=== PATIENT | male | born 1975 | race Hispanic/Latino ===

== ENCOUNTER → 2022-04-25 08:22 | Outpatient (CLI) | payer OTHER, SELFPAY ==
--- NOTE | 2022-04-25 08:25 | DI.RAD.S_ITS ---
PROCEDURE: XR LUMBAR SPINE MIN 4V INDICATIONS: BACK PAIN TECHNIQUE: 5 views of the lumbar spine were acquired, including bilateral oblique views. COMPARISON: None. FINDINGS: Bones: 4 [id number] vertebrae are present. L5 is partially sacralized. There is normal bony alignment. No vertebral body compression fractures. No suspicious bony lesions. Mild degenerative disc disease is seen at T12-L1 and L1-L2. There is mild degenerative disc disease and facet arthropathy at L4-L5. Soft tissues: Overlying bowel gas pattern is normal. No suspicious soft tissue calcifications. Oblique images: No pars defects. IMPRESSION: 1. Mild degenerative disc and facet disease in lumbar spine. 2. Transitional anatomy. 3. No pars defects. Dictated by: Roe Guido M.D. on 04/25/2022 at 9:11 Approved by: Roe Guido M.D. on 04/25/2022 at 9:13
--- NOTE | 2022-04-25 08:25 | DI.RAD.S_ITS ---
PROCEDURE: XR THORACIC SPINE 3V INDICATIONS: RIB PAIN TECHNIQUE: 3 views of the thoracic spine were acquired. COMPARISON: [facility], CR, XR LUMBAR SPINE MIN 4V, 04/25/2022, 8:23. FINDINGS: Bones: No fractures or dislocations. No suspicious bony lesions. 12 pairs of ribs are noted, and appear intact where visualized. Mild degenerative disc disease with anterior spurring at T4-T5, T5-T6, T6-T7, T7-T8, T11-T12 and T12-L1. Soft tissues: No paravertebral stripe thickening. IMPRESSION: Mild degenerative disc disease. Dictated by: Roe Guido M.D. on 04/25/2022 at 9:13 Approved by: Roe Guido M.D. on 04/25/2022 at 9:15
== END ==
PROVIDERS: Referring Provider Physical Medicine & Rehabilitation; Visit Provider Physical Medicine & Rehabilitation
DX: M51.34 Other intervertebral disc degeneration, thoracic region (principal); M51.35 Other intervertebral disc degeneration, thoracolumbar region; M51.36 Other intervertebral disc degeneration, lumbar region; M47.816 Spondylosis without myelopathy or radiculopathy, lumbar region; R07.81 Pleurodynia; M54.9 Dorsalgia, unspecified; M51.27 Other intervertebral disc displacement, lumbosacral region; M75.41 Impingement syndrome of right shoulder; M75.42 Impingement syndrome of left shoulder; M17.11 Unilateral primary osteoarthritis, right knee
CPT/HCPCS: 72072; 72110; 99214

== ENCOUNTER → 2022-05-15 18:58 | Outpatient (CLI) | payer OTHER, SELFPAY ==
--- NOTE | 2022-05-15 19:00 | DI.MRI.S_ITS ---
PROCEDURE: MR LUMBAR SPINE WO CON INDICATIONS: Lumbar facet arthropathy episodic low back pain TECHNIQUE: Noncontrast sagittal T1 spin echo and T2 fast echo, sagittal STIR, and T2 fast spin echo through the lumbar spine. In cases with scoliosis, additional coronal T2 fast spin echo may be performed. COMPARISON: [facility], CR, XR THORACIC SPINE 3V, 04/25/2022, 8:23. [facility], CR, XR LUMBAR SPINE MIN 4V, 04/25/2022, 8:23. Outside Facility, [place], MRI L-SPINE W/O CONTRAST, 11/04/2013, 7:46. FINDINGS: Image quality: Excellent. Alignment and Curvature: Transitional anatomy is present. Vertebral bodies are labeled 1 through 5 in keeping with prior assigned numbering. Prior to any surgical intervention, full x-ray spine series is recommended for more thorough assessment. Bone Marrow: Marrow is of normal overall signal. No acute vertebral body compression fractures. Spinal Cord: Conus medullaris terminates at the L1 level. Visualized cord demonstrates normal signal and size. Paraspinous Soft Tissues: No paravertebral masses. Discs: Moderate to severe desiccation is present at L4-5. L1-L2: No disc bulge, spinal stenosis or foraminal narrowing. No interval change. L2-L3: No disc bulge, spinal stenosis or foraminal narrowing. No interval change. L3-L4: Minimal disc bulge without spinal stenosis or foraminal narrowing. L4-L5: Mild disc bulge with less prominent appearance of posterior central protrusion. No spinal stenosis. [id number] bilateral foraminal narrowing slightly progressive. Mild facet hypertrophy. L5-S1: No disc bulge, spinal stenosis or foraminal narrowing. IMPRESSION: Degenerative changes remain most notable at L4-5 with slight interval progression as above. Dictated by: Neda Gibbs M.D. on 05/16/2022 at 9:13 Approved by: Neda Gibbs M.D. on 05/16/2022 at 9:18
== END ==
PROVIDERS: Referring Provider Physical Medicine & Rehabilitation; Visit Provider Physical Medicine & Rehabilitation
DX: M51.27 Other intervertebral disc displacement, lumbosacral region (principal); M47.816 Spondylosis without myelopathy or radiculopathy, lumbar region
CPT/HCPCS: 72148

== ENCOUNTER 2022-06-05 12:15 | Outpatient (CLI) | payer OTHER, SELFPAY ==
[2022-06-05] VITALS (9 sets, daily range): BP systolic 104–133; BP diastolic 70–90; PULSE 56–69; RESP 13–20; TEMP 36.6; O2SAT 98–100
--- NOTE | 2022-06-05 12:20 | DI.RAD.S_ITS ---
PROCEDURE: PAIN L/S FACET INJ/BLK 1ST ELFEGO COMPARISON: None. INDICATIONS: SPONDYLOSIS FINDINGS: Fluoroscopic spot filming was performed to verify placement of spinal needles on both sides at the L4-L5 and L5-S1 levels, as labeled on the films. Appropriate location of the needle tips was confirmed by injection of iodinated contrast. IMPRESSION: Intraprocedural examination demonstrating appropriate positions of the needles. Dictated by: Marcelo Jurado M.D. on 06/05/2022 at 13:55 Approved by: Marcelo Jurado M.D. on 06/05/2022 at 13:55
[2022-06-05] MEDS: MIDAZOLAM 2 MG/2 ML VIAL IV (14:07)
[2022-06-05] MEDS: LIDOCAINE 1% (PF) 5 ML INJ (14:13)
[2022-06-05] MEDS: BUPIVACAINE 0.5% (PF) 30 ML VIAL 5 ML INJ (14:13)
[2022-06-05] MEDS: IOPAMIDOL 15 ML VIAL 3 ML INJ (14:13)
[2022-06-05] MEDS: BETAMETHASONE 30 MG/5 ML MDV 12 MG INJ (14:13)
--- NOTE | 2022-06-05 14:31 | P.PCN_ITS ---
Date/Time/Diagnoses Date of procedure: 06/05/22 Time of procedure: 14:31 Pre-procedure diagnosis: 1. FACET ARTHROPATHY 2. AXIAL LBP 3. MULTILEVEL DDD Post-procedure diagnosis: same Procedure Notes Procedure: 1. FLUOROSCOPICALLY GUIDED CONTRAST CONTROLLED FACET JOINT INJECTIONS BILATERAL L4/5, L5/S1 Indications: Trevon is referred by Dr. Reese for treatment of Axial LBP Physician: Kiko Santiago Total Fluoroscopy time (seconds): 15 Total sedation minutes: 14 Complications: none Procedure in detail & Post-procedure care: FINDINGS Multilevel Facet Arthropathy with Clinically significant axial LBP DESCRIPTION OF PROCEDURE Fluoroscopically guided, contrast-controlled bilateral L4/5, L5/S1 facet joint injections. Following review of allergy and review of potential side effects and complications, including, but not necessarily limited to, infection, allergic reaction, local tissue breakdown, stroke, temporary or permanent nerve injury, paralysis, and possible , the patient indicated that the patient understood and agreed to proceed. An informed consent document was signed by the patient, witnessed by a nurse, and placed in the patient's chart. Additionally, other treatment options including medications, modalities, and physical therapy were reviewed with the patient. After review of previous anaesthesic history and IV conscious sedation the patient was deemed safe to proceed with today?s procedure with IV conscious sedation as ASA class II designation. Safety time-out was performed to confirm patient ID, procedure to be performed and site of procedure. IV sedation was accomplished with a combination of 2mg of Versed was administered by the RN after DO order, titrated to patient comfort during the course of the procedure while the patient remained responsive to all verbal commands In the prone position, following sterile prep and drape of the lumbar region, the posterior aspect of the L4/5, L5/S1 facet joints were identified fluoroscopically. The skin was anesthetized via a 25-gauge 1.5inch needle with 1% lidocaine solution into the corresponding facet joints. At this point, a 22- gauge 3.5-inch spinal needle was atraumatically introduced and advanced under fluoroscopic guidance into the corresponding facet joints. Following negative aspiration, injections of approximately 0.2cc of Isovue 200 confirmed interarticular placement without vascular uptake. The identical procedure was then performed at the L4/5, L5/S1 facet joints on the left. Radiological data, including multiple fluoroscopic views of the lumbosacral spine, reveal a spinal needle at the L4/5, L5/S1 facet joints bilaterally. Subsequent views show flow of contrast material both superiorly and inferiorly within the joint space without vascular or intrathecal uptake. At this point, a total of 0.5cc including a mixture of 0.25cc Marcaine and 0.25cc betamethasone was injected without complication into each of the corresponding facet joints. The patient tolerated the procedure well without signs or symptoms of complications prior to transfer to the recovery area continued monitoring without incident. The patient was then transferred to the recovery area where they were observed for an appropriate period of time after the injection. The patient reported a VAS score of 7 prior to the procedure and a post- procedure VAS of 0. POST OP INSTRUCTIONS The patient was provided a Pain Log to continue to record their response to the target-specific procedure prior to follow-up visit with their referring physician. Additionally, specific post-injection care instructions and a contact number to our office were provided if concerns arise regarding possible complications associated with the procedure are suspected.
== END 2022-06-05 14:55 | disposition home or self-care (01) ==
PROVIDERS: Referring Provider Physical Medicine & Rehabilitation; Visit Provider Physical Medicine & Rehabilitation
DX: M47.816 Spondylosis without myelopathy or radiculopathy, lumbar region (principal); M47.817 Spondylosis without myelopathy or radiculopathy, lumbosacral region; M51.36 Other intervertebral disc degeneration, lumbar region; M51.37 Other intervertebral disc degeneration, lumbosacral region
CPT/HCPCS: 64493; 64494; 99152; J0702; J2250